=== PATIENT | male | born 1965 | race Caucasian/White ===

== ENCOUNTER 2024-02-07 03:40 | Observation (INO) | payer BC ==
[2024-02-07] MEDS: Sodium Chloride 0.9% 1,000 ML IV SCH ×3 (04:21→07:32)
[2024-02-07 04:22] LABS: BASOPHILS PERCENT AUTO 0.3 % (0.1-1.3); EOSINOPHILS PERCENT AUTO 0.2 % (0.0-5.4); HEMATOCRIT 39.5 % (38.4-49.7); HEMOGLOBIN 14.3 g/dL (12.9-16.9); IMMATURE GRAN PERCENT AUTO 0.3 % (0.0-0.7); LYMPHOCYTES ABSOLUTE AUTO 0.18 K/uL (0.8-3.3); LYMPHOCYTES PERCENT AUTO 3.1 % (11.4-47.7); MEAN CORPUSCULAR HEMOGLOBIN 32.9 pg (31.6-35.5); MEAN CORPUSCULAR HGB CONC 36.2 g/dL (31.6-35.5); MEAN CORPUSCULAR VOLUME 90.8 fL (81.4-99.0); MONOCYTES ABSOLUTE AUTO 0.37 K/uL (0.20-0.90); MONOCYTES PERCENT AUTO 6.3 % (3.3-12.6); NEUTROPHILS ABSOLUTE AUTO 5.28 K/uL (1.0-7.6); NEUTROPHILS PERCENT AUTO 89.8 % (40.0-78.1); PLATELET COUNT,PLT 168 K/uL (130-375); RED BLOOD CELL COUNT 4.35 M/uL (4.14-5.76); WHITE BLOOD CELL COUNT,WBC 5.9 K/uL (3.2-11.0)
[2024-02-07] MEDS: fentaNYL 50 MCG/ML SDV IVPUSH ONE (04:22)
[2024-02-07] MEDS: Ondansetron 4 MG/2 ML SDV IVPUSH ONE (04:22)
[2024-02-07 04:25] LABS: BASOPHILS ABSOLUTE AUTO 0.02 K/uL (0.00-0.10); EOSINOPHILS ABSOLUTE AUTO 0.01 K/uL (0.00-0.40); IMMATURE GRAN ABSOLUTE AUTO 0.02 K/uL (0.00-0.23)
[2024-02-07 04:40] LABS: ALANINE AMINOTRANSFERASE,ALT 33 U/L (12-78); ALBUMIN 3.4 g/dL (3.4-5.0); ALKALINE PHOSPHATASE 90 U/L (46-116); ASPARTATE AMNIOTRANSFERASE,AST 23 U/L (15-37); BILIRUBIN TOTAL 1.1 mg/dL (0.2-1.0); BLOOD UREA NITROGEN,BUN 13 mg/dL (7-18); CALCIUM 8.8 mg/dL (8.5-10.1); CARBON DIOXIDE,CO2 24 mmol/L (21-32); CHLORIDE,CL 103 mmol/L (100-108); CREATININE 1.4 mg/dL (0.8-1.3); ESTIMATED GFR 58 mL/min (>60); GLUCOSE RANDOM 126 mg/dL (74-106); POTASSIUM,K 3.7 mmol/L (3.6-5.2); PROTEIN TOTAL,TP 6.8 g/dL (6.4-8.2); SODIUM,NA 139 mmol/L (140-148)
[2024-02-07] MEDS: Iopamidol 612 MG/ML 100 ML Bottle IV STA (04:55)
[2024-02-07] MEDS: Sodium Chloride 0.9% 80 ML IV STA (04:55)
[2024-02-07 05:02] LABS: ANION GAP 15.7 mmol/L (5.0-14.0)
[2024-02-07] MEDS: Levofloxacin/Dextrose 5%-Water 750 MG in Premix Bag 1 BAG IV ONE (05:55)
[2024-02-07] MEDS: Ketorolac 15 MG/ML SDV IVPUSH ONE (06:11)
[2024-02-07] MEDS ORDERED: Ondansetron 4 MG/2 ML SDV IV PRN (07:14)
[2024-02-07] MEDS ORDERED: Non-Formulary Medication 1 Each (Hydroxyzine Hcl [Hydroxyzine] 25 MG Tablet) PO PRN (07:21)
[2024-02-07] MEDS: metroNIDAZOLE/Normal Saline 500 MG in Premix Bag 1 BAG IV ONE (07:29)
[2024-02-07] MEDS ORDERED: hydrOXYzine HCl 25 MG Tab PO PRN (08:16)
[2024-02-07] MEDS ORDERED: Non-Formulary Medication 1 Each (Losartan [Cozaar] 50 MG Tablet) PO SCH (09:00)
[2024-02-07] MEDS ORDERED: Non-Formulary Medication 1 Each (Hydrochlorothiazide [Hydrochlorothiazide] 25 MG Tablet) PO SCH (09:00)
[2024-02-07] MEDS ORDERED: MERCAPTOPURINE PO SCH (09:00)
[2024-02-07] MEDS ORDERED: Non-Formulary Medication 1 Each (Multivitamin [Multi-Vitamin Daily] 1 EACH Tablet) PO SCH (09:00)
[2024-02-07] MEDS: Multivitamins with Iron/Calcium/Folic Acid/Minerals Tab PO SCH (09:31)
[2024-02-07] MEDS: Losartan 50 MG Tab PO SCH (09:46)
[2024-02-07] MEDS: Hydrochlorothiazide 25 MG Tab PO SCH (09:46)
[2024-02-07] MEDS: metroNIDAZOLE 250 MG Tab PO SCH (15:14)
[2024-02-07] MEDS: Acetaminophen 325 MG Tab PO PRN (15:14)
[2024-02-07] MEDS ORDERED: metroNIDAZOLE/Normal Saline 500 MG in Premix Bag 1 BAG IV SCH (16:00)
[2024-02-07] MEDS ORDERED: Non-Formulary Medication 1 Each (Amlodipine [Norvasc] 10 MG Tablet) PO SCH (21:00)
[2024-02-07] MEDS: amLODIPine 5 MG Tab PO SCH (21:38)
[2024-02-08 04:59] LABS: HEMATOCRIT 40.2 % (38.4-49.7); HEMOGLOBIN 14.3 g/dL (12.9-16.9); MEAN CORPUSCULAR HEMOGLOBIN 32.7 pg (31.6-35.5); MEAN CORPUSCULAR HGB CONC 35.6 g/dL (31.6-35.5); RED BLOOD CELL COUNT 4.37 M/uL (4.14-5.76); WHITE BLOOD CELL COUNT,WBC 4.2 K/uL (3.2-11.0)
[2024-02-08 05:16] LABS: ANION GAP 5.4 mmol/L (5.0-14.0); CALCIUM 8.5 mg/dL (8.5-10.1); CREATININE 1.2 mg/dL (0.8-1.3); EST CRCL DRUG DOSING (CG) 75.83 mL/min; POTASSIUM,K 4.4 mmol/L (3.6-5.2)
[2024-02-08] MEDS: Ciprofloxacin 500 MG Tab PO SCH (07:57)
== END 2024-02-08 10:55 | disposition home or self-care (01) ==
LOC: JP.ED 03:40 → JP.MS 07:14
PROVIDERS: ADMIT Family Medicine; ATTEND Internal Medicine
DX: R78.81 Bacteremia (principal); K50.819 Crohn's disease of both small and large intestine with unspecified complications; I10 Essential (primary) hypertension; Z98.890 Other specified postprocedural states; Z79.899 Other long term (current) drug therapy; Z90.49 Acquired absence of other specified parts of digestive tract; Z88.5 Allergy status to narcotic agent
CPT/HCPCS: 36415; 74177; 80048; 80053; 83605; 85025; 85027; 86140; 96361; 96365; 96366; 96367; 96375; 99238; 99285; A9270; G0378; J1836; J1885; J1956; J2405; J3010; J3490; J7030; Q9967

== ENCOUNTER 2025-01-28 16:29 | Emergency (ER) | payer BC ==
[2025-01-28 17:13] LABS: BASOPHILS ABSOLUTE AUTO 0.03 K/uL (0.00-0.10); BASOPHILS PERCENT AUTO 0.4 % (0.1-1.3); EOSINOPHILS ABSOLUTE AUTO 0.08 K/uL (0.00-0.40); EOSINOPHILS PERCENT AUTO 1.0 % (0.0-5.4); IMMATURE GRAN ABSOLUTE AUTO 0.03 K/uL (0.00-0.23); IMMATURE GRAN PERCENT AUTO 0.4 % (0.0-0.7); LYMPHOCYTES ABSOLUTE AUTO 0.49 K/uL (0.8-3.3); LYMPHOCYTES PERCENT AUTO 6.2 % (11.4-47.7); MONOCYTES ABSOLUTE AUTO 0.90 K/uL (0.20-0.90); MONOCYTES PERCENT AUTO 11.4 % (3.3-12.6); NEUTROPHILS ABSOLUTE AUTO 6.34 K/uL (1.0-7.6); NEUTROPHILS PERCENT AUTO 80.6 % (40.0-78.1); PLATELET COUNT,PLT 483 K/uL (130-375); RED BLOOD CELL COUNT 4.14 M/uL (4.14-5.76); WHITE BLOOD CELL COUNT,WBC 7.9 K/uL (3.2-11.0)
[2025-01-28 17:40] LABS: A/G RATIO 0.6 (1.2-2.2); ALANINE AMINOTRANSFERASE,ALT 20 U/L (12-78); ASPARTATE AMNIOTRANSFERASE,AST 16 U/L (15-37); BILIRUBIN TOTAL 0.5 mg/dL (0.2-1.0); BLOOD UREA NITROGEN,BUN 9 mg/dL (7-18); CARBON DIOXIDE,CO2 28 mmol/L (21-32); CHLORIDE,CL 101 mmol/L (100-108); CREATININE 1.2 mg/dL (0.8-1.3); EST CRCL DRUG DOSING (CG) 78.01 mL/min; ESTIMATED GFR 70 mL/min (>60); GLUCOSE RANDOM 109 mg/dL (74-106); POTASSIUM,K 4.4 mmol/L (3.6-5.2); PROTEIN TOTAL,TP 7.6 g/dL (6.4-8.2); SODIUM,NA 136 mmol/L (140-148)
[2025-01-28 18:59] LABS: APPEARANCE,URINE CLEAR (CLEAR); GLUCOSE,URINE NEGATIVE (NEGATIVE); OCCULT BLOOD,URINE NEGATIVE (NEGATIVE)
== END 2025-01-28 20:10 | disposition home or self-care (01) ==
LOC: JP.ED 16:29
DX: K50.819 Crohn's disease of both small and large intestine with unspecified complications (principal); I10 Essential (primary) hypertension; E86.0 Dehydration; Z88.5 Allergy status to narcotic agent; Z88.8 Allergy status to other drugs, medicaments and biological substances; Z79.899 Other long term (current) drug therapy
CPT/HCPCS: 36415; 80053; 81003; 85025; 96360; 99283; 99284-25; J7030